=== PATIENT | male | born 1955 | race Caucasian/White ===

== ENCOUNTER → 2018-07-21 18:45 | Outpatient (CLI) | payer MEDICARE, SELFPAY | PROVIDERS: PCP Family Medicine; Visit Provider Family Medicine | DX: G47.33 Obstructive sleep apnea (adult) (pediatric) (principal) | CPT/HCPCS: 95806 ==

== ENCOUNTER → 2018-10-30 14:57 | Outpatient (CLI) | payer MEDICARE, SELFPAY | PROVIDERS: Visit Provider Specialist | DX: G47.33 Obstructive sleep apnea (adult) (pediatric) (principal) | CPT/HCPCS: 94762 ==

== ENCOUNTER 2025-04-23 10:27 | Outpatient (CLI) | payer MEDICARE, SELFPAY ==
--- OUTSIDE RECORDS SUMMARY | 2025-04-23 10:30 | XMS_ITS | Clinical Summary ---
Author Organization Healthcare Address [address] [place] [address] Care Team Providers Care Fermenter Helper Name Role Phone Favio Clay MD Primary Care Provider [phone] Family History Medical History Relation Name Comments Lymphoma Father Diabetes Mother Relation Name Status Comments Father Mother Social History Tobacco Use Types Packs/Day Years Used Date Smoking Tobacco: Former Alcohol Use Standard Drinks/Week Comments No 0 (1 standard drink = 0.6 oz pur e alcohol) Sex and Gender Information Value Date Recorded Sex Assigned at Not on file Legal Sex Male 6:00 PM EDT Gender Identity Not on file Sexual Orientation Not on file Last Filed Vital Signs Vital Sign Reading Time Taken Comments Blood Pressure - - Pulse - - Temperature - - Respiratory Rate - - Oxygen Saturation - - Inhaled Oxygen Concentration - - Weight 134 kg (294 lb 6.1 oz) 02/16/2016 12:31 P M EDT Height 190.5 cm (6' 3 ) 02/16/2016 12:31 PM EDT Body Mass Index 36.79 02/16/2016 12:31 PM EDT Plan of Treatment Not on file Care Teams Fermenter Helper Relationship Specialty Start Date End Date Favio Clay MD [facility] [place] [address] PCP - General 01/16/21
--- OUTSIDE RECORDS SUMMARY | 2025-04-23 10:30 | XMS_ITS | Clinical Summary ---
[facility] Organization [facility] Address [address] [place] [address] Care Team Providers Care Rotary Veneer Machine Operator Name Role Phone Favio Clay MD Primary Care Provider [phone] Allergies No known active allergies Medications Semaglutide, 1 MG/DOSE, (OZEMPIC) 2 MG/1.5ML solution pen-injector Inject 1 mg under the skin into the appropriate area as directed 1 (One) Time Per Week. Active rosuvastatin (CRESTOR) 20 MG tablet Take 1 tablet by mouth Daily. Active metoprolol tartrate (LOPRESSOR) 100 MG tablet Take 1 tablet by mouth 2 (Two) Times a Day. Active lisinopril (PRINIVIL,ZESTR IL) 20 MG tablet Take 1 tablet by mouth Daily. Active gabapentin (NEURONTIN) 300 MG capsule Take 1 capsule by mouth 2 (Two) Times a Day. Active metFORMIN (GLUCOPHAGE) 1000 MG tablet Take 1 tablet by mouth 2 (Two) Times a Day With Meals. Active traMADol (ULTRAM) 50 MG tablet Take 1 tablet by mouth Every 8 (Eight) Hours As Needed for Moderate Pain. Active baclofen (LIORESAL) 10 MG tablet Take 1 tablet by mouth Every 8 (Eight) Hours As Needed for Muscle Spasms. 10 tablet 4 Active Social History Tobacco Use Types Packs/Day Years Used Date Smoking Tobacco: Every Day Cigarettes Tobacco Cessation:Ready to Q uit: Not Asked; Counseling Given: Not Answered Alcohol Use Standard Drinks/Week Comments Not Currently 0 (1 standard drink = 0.6 oz pur e alcohol) Abuse Screen Answer Date Recorded Feels Unsafe at Home or Work/School no 03/26/2024 Feels Threatened by Someone no 03/06 Does Anyone Try to Keep You From Having Contact with Others or Doing Things Outside Your Home? no 03/26/2024 Physical Signs of Abuse Present no 03/26/2024 Housing Stability Answer Date Recorded Current Living Arrangements Not on file 05/2023 Potentially Unsafe Housing Conditions Not on deneen e 06/13/2023 Family and Community Support Answer Jovani e Recorded Help with Day-to-Day Activities Not on file 06/13/2023 Lonely or Isolated Not on file 06/13/2023 Employment Answer Date Recorded Do you want help finding or keeping work or a matt b? Not on file 06/13/2023 Disabilities Answer Date Recorded Concentrating, Remembering, or Making Decisions Difficulty Not on file 06/13/2023 Doing Errands Independently Difficulty Not on fi le 06/13/2023 Education Answer Date Recorded Help with school or training? Not on file Preferred Language Not on file 06/13/2023 Sex and Gender Information Value Date Recorded Sex Assigned at Not on file Legal Sex Male 1:31 PM EDT Gender Identity Not on file Sexual Orientation Not on file Last Filed Vital Signs Vital Sign Reading Time Taken Comments Blood Pressure 125/77 03/26/2024 12:38 PM EDT Pulse 69 03/26/2024 1:30 PM EDT Temperature 36.7 C (98 F) 03/26/2024 11:33 AM EDT Respiratory Rate 20 03/26/2024 11:33 AM EDT Oxygen Saturation 92% 03/26/2024 1:30 PM EDT Inhaled Oxygen Concentration - - Weight 116 kg (256 lb 3.2 oz) 03/26/2024 11:33 A M EDT Height 182.9 cm (6') 03/26/2024 11:33 AM EDT Body Mass Index 34.75 03/26/2024 11:33 AM EDT Plan of Treatment Health Maintenance Due Date Last Done Comments TEJINDER 1998 COLON CANCER SCREENING [address] COLONOGRAPHY 1998 FECAL OCCULT BLOOD TEST 1998 FIT Testing (1 year) 1998 Pneumococcal Vaccine 50+ (1 of 1 - PCV) 2003 ZOSTER VACCINE (1 of 2) 2003 AAA SCREEN ONCE 2018 ANNUAL PHYSICAL 05/15/2018 HEPATITIS C SCREENING 05/15/2018 COVID-19 Vaccine (4 - 2023-2 5 season) 2024 07/04/2021, 12/05/2020, 11/06/2020 INFLUENZA VACCINE 06/05/2025 08/12/2023, , 06/19/2021, Additional history exists COLONOSCOPY 05/29/2028 05/29/2018, 12/04, 12/22/2009, Additional history exists COLORECTAL CANCER SCREENING 05/29/2028 TDAP/TD VACCINES (2 - Td or Tdap) 02/06/2030 020 Procedures Procedure Name Priority Date/Time Associated Diagnosis Comments SCANNED - COLONOSCOPY 05/29/2018 from Last 3 Months or Most Recently Relevant to Health Maintenance Results * SCANNED - COLONOSCOPY (05/29/2018) Favio Clay MD CHART REVIEW TABS Final Re sult from Last 3 Months or Most Recently Relevant to Health Maintenance Insurance Care Teams Rotary Veneer Machine Operator Relationship Specialty Start Date End Date Favio Clay MD [address] [place] [address] PCP - General Family Medicine 04/28/18
--- OUTSIDE RECORDS SUMMARY | 2025-04-23 10:30 | XMS_ITS | Clinical Summary ---
Author Organization [facility] ([place], [place], [place], [place]) Address [address] [place] [address] Care Team Providers Care Database Technician Name Role Phone Favio Clay MD Primary Care Provider [phone] Allergies No known active allergies Medications gabapentin (NEURONTIN) 300 MG capsule Take 1 capsule (300 mg total) by mouth 2 (two) times daily. Active lisinopriL (ZESTRIL) 20 MG tablet Take 1 tablet (20 mg total) by mouth nightly. Active metFORMIN (GLUCOPHAGE) 1000 MG tablet Take 1 tablet (1,000 mg total) by mouth 2 (two) times daily. Active metoprolol tartrate (LOPRESSOR) 100 MG tablet Take 1 tablet (100 mg total) by mouth nightly. Active rosuvastatin (CRESTOR) 20 MG tablet Take 1 tablet (20 mg total) by mouth nightly. Active semaglutide 1 mg/dose (4 mg/3 mL) pnij Inject 1 mg under the skin once a week mondays. Active meloxicam (MOBIC) 15 MG tablet Take 0.5 tablets (7.5 mg total) by mouth 2 (two) times daily. 04/05/2025 Active Resolved Problems Problem Noted Date Diagnosed Date Resolved Date Lumbar stenosis with neurogenic claudication 02/03/2025 Encounters Date Type Department Care Team Description 02/01/2025 1:34 PM EDT - 02/01/2025 4:58 PM EDT Surgery [facility] Operating Room [address] [place] [address] Korey Osorio MD (L4-S1 PLIF USING GE 02/01/2025 1:12 PM EDT Anesthesia Event [facility] Operating Room [address] [place] [id number] Tyler Chatman MD Littles, Joel T, MD 02/01/2025 10:50 AM EDT - 02/03/2025 2:43 PM EDT Hospital Encounter [facility] Orthopedic & Neurosurgery Unit [address] [place] [address] Korey Osorio MD Discharge Disposition: Home or Self Care 02/01/2025 Travel 01/21/2025 1:57 PM EDT - 01/21/2025 11:59 PM EDT Hospital Encounter [facility] Preadmission Testing [address] [place] [address] Korey Osorio MD Preop testing (Primary Dx) Discharge Disposition: Home or Self Care 01/21/2025 Travel from Last 3 Months Social History Tobacco Use Types Packs/Day Years Used Date Smoking Tobacco: Former Cigarettes S tarted: 2023 Smokeless Tobacco: Former Tobacco Cessation:Counseling Given: Not Answered Alcohol Use Standard Drinks/Week Comments Never 0 (1 standard drink = 0.6 oz pur e alcohol) [facility] - Mental Health Answer Date Recorde d Little interest or pleasure in doing things Not at all 01/21/2025 Feeling down, depressed, or hopeless Not at all 01/21/2025 Feeling of Stress Not on file 01/21/2025 Sex and Gender Information Value Date Recorded Sex Assigned at Not on file Legal Sex Male 5:20 PM CDT Gender Identity Not on file Sexual Orientation Not on file Last Filed Vital Signs Vital Sign Reading Time Taken Comments Blood Pressure 124/68 02/03/2025 11:26 AM EDT Pulse 76 02/03/2025 11:26 AM EDT Temperature 36.3 C (97.3 F) 02/03/2025 11:26 AM EDT Respiratory Rate 16 02/03/2025 11:26 AM EDT Oxygen Saturation 98% 02/03/2025 11:26 AM EDT Inhaled Oxygen Concentration 25% 02/03/2025 1 2:00 AM EDT Weight 127.1 kg (280 lb 4 oz) 02/01/2025 11:19 A M EDT Height 188 cm (6' 2 ) 01/21/2025 2:24 PM EDT Body Mass Index 35.98 01/21/2025 2:24 PM EDT Plan of Treatment Health Maintenance Due Date Last Done Comments CT Colonography 1953 Colonoscopy 1953 Colorectal Cancer Screening 1953 FOBT/FIT 1953 Fit-DNA (Cologuard) 1953 Sigmoidoscopy 1953 Hepatitis C Screening 1971 Pneumococcal 50+ years (1 of 1 - PCV) 2003 Shingles Vaccine (Zoster) (1 of 2) 2003 Abdominal Aortic Aneurysm (A AA) Screen 2018 COVID-19 VACCINE (2023-2 5 season) 2024 07/04/2021, 12/05/2020, 11/06/2020 Falls Risk Screening 09/05/2024 Medicare IPPE (Welcome to Medicare) [id number] 09/05/2024 Influenza Vaccine (#1) 2025 , 08/12/2023, 06/14/2022, Additional history exists Depression Screening (12+) 01/21/2026 01/21/2025 Tobacco Cessation Counseling and Screening (12+) 02/01/2026 02/01/2025 Respiratory Syncytial Virus (RSV) Adult or (1 - 1-dose 75+ series) 02/20/2028 DTAP/TDAP/TD VACCINES (3 - T d or Tdap) 07/07/2034 07/07/2024, 02/07/2020 Medical Devices Implanted Type Area Transportation Broker Device Identifier Shelf Expiration Date Model / Serial / Lot Bone Vivigen Formable Cell c Bl-1600-002 - [id number] Implanted:Qty: 1 on 02/01/2025 by Korey Osorio MD at [facility] IMPLANTS N/A: Spine Lumbar LIFENET:LIFENET TRANSPLANT SRV 01/10/2026 BL-1600-0 02 / [id number] / Scr Poly Fen 7x55mm [id number] - [id number] Implanted:Qty: 4 on 02/01/2025 by Korey Osorio MD at [facility] IMPLANTS N/A: Spine Lumbar J &J:DEPUY:DEPUY SPINE 5560-12-7 055F / 5560-12-7 055F / Scr Poly Fen 7x50mm [id number] - [id number] Implanted:Qty: 2 on 02/01/2025 by Korey Osorio MD at [facility] IMPLANTS N/A: Spine Lumbar J &J:DEPUY:DEPUY SPINE 5560-12-7 050F / 5560-12-7 050F / St Scr T27 5.5 And 6.0 [id number] - [id number] Implanted:Qty: 6 on 02/01/2025 by Korey Osorio MD at [facility] IMPLANTS N/A: Spine Lumbar J &J:DEPUY:DEPUY SPINE 5560-01-0 000 / 5560-01-0 000 / Chad Prelordosed 5.5x65mm [id number] - [id number] Implanted:Qty: 2 on 02/01/2025 by Korey Osorio MD at [facility] IMPLANTS N/A: Spine Lumbar J &J:DEPUY:DEPUY SPINE 5560-55-3 065T / 5560-55-3 065T / Procedures Procedure Name Priority Date/Time Associated Diagnosis Comments NOVA GLUCOSE POC Routine 02/01/2025 3:54 PM EDT FL C-ARM < 1 HOUR Routine 02/01/2025 3:3 0 PM EDT ANESTHESIA INTUBATION Routine 02/01/2025 1:20 PM EDT WI ARTHRODESIS COMBINED TQ 1NTRSPC LUMBAR 02/01/2025 1:12 PM EDT Lumbar spondylosis Case Notes IN 1030 , 2.5h(R), PASS, USING AIRO NOVA GLUCOSE POC Routine 02/01/2025 11:4 2 AM EDT ABO/RH CONFIRMATION/RETYPE ([place] BKR) Routine 02/01/2025 11:38 AM EDT TYPE AND SCREEN ([place] BKR) STAT 02/01/2025 11:32 AM EDT EKG-SCANNED 02/01/2025 FS_MODEL_IP_ECG 12-LEAD Routine 01/21/2025 2:43 PM EDT Preop testing URINALYSIS WITHOUT MICROSCOPIC Routine 01/21/2025 2:21 PM EDT Preop testing CBC W/ AUTO DIFF STAT 01/21/2025 2:21 PM EDT Preop testing BASIC METABOLIC PANEL STAT 01/21/2025 2:21 PM EDT Preop testing from Last 3 Months Results * Glucose, Nova Meter (02/01/2025 3:54 PM EDT) Only the most recent of2 resultswithin the time period is included. POC-GLUCOSE 104 70 - 110 mg/dL 02/01/2025 3:56 PM EDT [facility] Comment:In the event of poor peripheral blood flow, venous or arterial blood should be used due to the potential of erroneous results. Burner Technician [id number] 02/01/2025 3:56 PM EDT [facility] Blood WHOLE BLOOD / Unknown 02/01/2025 3:54 PM EDT 02/01/2025 3:55 PM EDT Narrative [facility] - 02/01/2025 3:56 PM EDT Burner Technician ID is - [id number] us Korey Osorio MD POINT OF CARE TEST ORDERABLES Fi nal Result [facility] [address] [phone] * FL C-ARM < 1 HOUR (02/01/2025 3:30 PM EDT) Anatomical Region Laterality Modality X-Ray 02/01/2025 4:37 PM EDT Impressions 02/01/2025 4:[address] for hardware placement as detailed above. Images reviewed, interpreted, and dictated by Dr. Van Walker. Transcribed by Regina Hodge PA-C. Narrative 02/01/2025 4:[address] LUMBAR SPINE 02/01/2025 1:15 PM HISTORY: Intraoperative lumbar spine fusion. PROCEDURE: Axial images were obtained in the operative suite through the lumbar spine by computed tomography. This study was performed with techniques to keep radiation doses as low as reasonably achievable, (ALARA). Individualized dose reduction techniques using automated exposure control or adjustment of mA and/or kV according to the patient size were employed. FINDINGS: Posterior hardware is noted. Wide posterior exposure is noted. There is diffuse degenerative disc disease. RADIATION DOSE: Reference air kerma 306 mGy. Procedure Note Rachna Walker MD - 02/01/2025 CT LUMBAR SPINE 02/01/2025 1:15 PM HISTORY: Intraoperative lumbar spine fusion. PROCEDURE: Axial images were obtained in the operative suite through the lumbar spine by computed tomography. This study was performed with techniques to keep radiation doses as low as reasonably achievable, (ALARA). Individualized dose reduction techniques using automated exposure control or adjustment of mA and/or kV according to the patient size were employed. FINDINGS: Posterior hardware is noted. Wide posterior exposure is noted. There is diffuse degenerative disc disease. RADIATION DOSE: Reference air kerma 306 mGy. IMPRESSION: Intraoperative CT for hardware placement as detailed above. Images reviewed, interpreted, and dictated by Dr. Van Walker. Transcribed by Regina Hodge PA-C. Korey Osorio MD IMG FLUOROSCOPY ORDERABLES Final Result * AN SINGLE LUMEN INTUBATION (02/01/2025 1:20 PM EDT) Narrative Natacha Nam CRNA - 02/01/2025 1:20 PM EDT Natacha Nam CRNA 02/01/2025 1:25 PM Intubation Authorized by: Tyler Chatman MD Performed by: Natacha Nam CRNA Date/Time: 02/01/2025 1:20 PM Urgency: elective Indications and Patient Condition Indications for airway management: anesthesia and airway protection Spontaneous Ventilation: absent Sedation level: general anesthesia Preoxygenated: yes Patient position: sniffing no Mask difficulty assessment: 2 - vent by mask + OA or adjuvant +/- NMBA no Final Airway Details Final airway type: endotracheal airway Endotracheal tube type: ETT Cuffed: yes Successful intubation technique: direct laryngoscopy Facilitating devices/methods: intubating stylet Endotracheal tube insertion site: oral Blade: Edi Blade size: #4 ETT size (mm): 8.0 Cormack-Lehane Classification: grade I - full view of glottis Placement verified by: chest auscultation and capnometry Measured from: lips ETT to lips (cm): 22 Number of attempts at approach: 1 Number of other approaches attempted: 0 Additional Comments Atraumatic intubation, oral structures same as preop us Tyler Chatman MD ANESTHESIA ORDERABLES Final Resu lt * ABO/RH Confirmation/Retype (02/01/2025 11:38 AM EDT) RETYPE O Positive 02/01/2025 11:24 AM EDT [facility] ([place]) Blood Venipuncture / Unknown 02/01/2025 11:38 AM EDT 02/01/2025 11:49 AM EDT us Tyler Chatman MD [facility] TEST ORDERABLES F inal Result [facility] ([place]) [address] [facility] [place] [address], [facility] [phone] * Type and Screen (02/01/2025 11:32 AM EDT) ABO/Rh O Positive 02/01/2025 11:20 AM EDT [facility] ([place]) Antibody Screen Negative 02/01/2025 11:20 AM EDT [facility] ([place]) HISTCHK HIST CHECK PERFORMED 02/01/2025 11:20 AM EDT [facility] ([place]) Blood Venipuncture / Unknown 02/01/2025 11:32 AM EDT 02/01/2025 11:49 AM EDT us Tyler Chatman MD [facility] TEST ORDERABLES F inal Result Performing Organization Address [facility]/ZIP Co de Phone Number [facility] ([place]) [address] [facility] [place] [address], [facility] [phone] * EKG-SCANNED (02/01/2025) Narrative 02/01/2025 Ordered by an unspecified provider. us Default Scanning Provider SCAN ORDERS Final Result * ECG 12 lead (01/21/2025 2:43 PM EDT) VENTRICULAR RATE EKG/MIN 80 BPM GE MUSE ATRIAL RATE (MCT) 80 BPM GE MUSE WI Interval 146 ms GE MUSE QRS-INTERVAL (MSEC) 72 ms GE MUSE QT Interval 382 ms GE MUSE QTC Interval 440 ms GE MUSE P [place] 50 degrees GE MUSE R AXIS (MCT) 24 degrees GE MUSE T Wave [place] 63 degrees GE MUSE [place] Diagnosis Normal sinus rhythm Normal ECG No previous ECGs available Confirmed by Gera Wilson ([id number]) on 01/22/2025 10:57:06 AM GE MUSE 01/21/2025 2:43 PM EDT 01/22/2025 10:57 AM EDT us Toribio Schmitz MD ECG ORDERABLES Final Result Performing Organization Address [facility]/ZIP Co de Phone Number GE MUSE * (ABNORMAL) CBC with automated diff (01/21/2025 2:21 PM EDT) WBC 8.0 4.2 - 9.1 K/ L 01/21/2025 2:50 PM EDT [facility] RBC 3.89(L) 4.63 - 6.08 M/ L 01/21/2025 2:50 PM EDT [facility] Hemoglobin 12.3(L) 13.7 - 17.5 GM/DL 01/21/2025 2:50 PM EDT [facility] Hematocrit 36.9(L) 40.1 - 51.0 % 01/21/2025 2:50 PM EDT [facility] MCV 95(H) 79 - 92 fL 01/21/2025 2:50 PM EDT [facility] MCH 31.6 25.7 - 32.2 pg 01/21/2025 2:50 PM EDT [facility] MCHC 33.3 32.3 - 36.5 GM/DL 01/21/2025 2:50 PM EDT [facility] RDW 13.3 11.6 - 14.4 % 01/21/2025 2:50 PM EDT [facility] Platelets 215 140 - 375 K/CU MM 01/21/2025 2:50 PM EDT [facility] MPV 10.4 9.4 - 12.4 fL 01/21/2025 2:50 PM EDT [facility] % Neutros 60 34 - 68 % 01/21/2025 2:50 PM EDT [facility] % Lymphs 31 22 - 53 % 01/21/2025 2:50 PM EDT [facility] % Monos 7 5 - 12 % 01/21/2025 2:50 PM EDT [facility] % Eos 3 1 - 7 % 01/21/2025 2:50 PM EDT [facility] % Baso 0 0 - 1 % 01/21/2025 2:50 PM EDT [facility] NRBC Absolute <0.01 0 - 0.012 K/ul 01/21/2025 2:50 PM EDT [facility] # Neutros 4.74 1.78 - 5.38 K/ L 01/21/2025 2:50 PM EDT [facility] # Lymphs 2.43 1.32 - 3.57 K/ L 01/21/2025 2:50 PM EDT [facility] # Monos 0.54 0.30 - 0.82 K/ L 01/21/2025 2:50 PM EDT [facility] # Eos 0.20 0.04 - 0.54 K/ L 01/21/2025 2:50 PM EDT [facility] # Baso 0.03 0.01 - 0.08 K/ L 01/21/2025 2:50 PM EDT [facility] Immature Granulocytes-Re lative 0.30 0.01 - 0.43 % 01/21/2025 2:50 PM EDT [facility] # IG <0.03 0.00 - 0.03 K/uL 01/21/2025 2:50 PM EDT [facility] Blood Venipuncture / Unknown 01/21/2025 2:21 PM EDT 01/21/2025 2:48 PM EDT Narrative [facility] - 01/21/2025 2:50 PM EDT When CBC w/ Auto Diff is ordered the lab will add a Manual Differential as a quality check at no additional charge if: Lymphocytes greater than seventy five percent with normal or increased WBC Monocytes greater than Fifteen percent Basophil greater than four percent Bands >10% or several immature myeloids are seen on scan Blast? Flag noted Atypical Lymph flag noted us Korey Osorio MD LAB BLOOD ORDERABLES Final Resul t [facility] [address] [phone] * (ABNORMAL) Urinalysis without Microscopic (01/21/2025 2:21 PM EDT) Color, UA Yellow 01/21/2025 2:43 PM EDT [facility] Clarity, UA Clear Clear 01/21/2025 2:43 PM EDT [facility] Specific Michie, UA 1.029 1.005 - 1.030 01/21/2025 2:43 PM EDT [facility] pH, UA 5.5(L) 6.0 - 8.0 01/21/2025 2:43 PM EDT [facility] Leukocytes, UA 25 Amada/uL(A) Negative 01/21/2025 2:43 PM EDT [facility] Nitrite, UA Negative Negative 01/21/2025 2:43 PM EDT [facility] Protein, UA Trace(A) Negative 01/21/2025 2:43 PM EDT [facility] Glucose, UA Normal Normal 01/21/2025 2:43 PM EDT [facility] Ketones, UA Trace(A) Negative 01/21/2025 2:43 PM EDT [facility] Urobilinogen, UA Normal Normal 01/21/2025 2:43 PM EDT [facility] Bilirubin, UA Negative Negative 01/21/2025 2:43 PM EDT [facility] Blood, UA Negative Negative 01/21/2025 2:43 PM EDT [facility] Specimen Source Urine, Clean Catch 01/21/2025 2:43 PM EDT [facility] Urine URINE SPECIMEN COLLECTION, CLEAN CATCH / Unknown 01/21/2025 2:21 PM EDT 01/21/2025 2:35 PM EDT us Korey Osorio MD URINE ORDERABLES Final Result Performing Organization Address City/State/[facility] Co de Phone Number [facility] [address] [phone] * (ABNORMAL) Basic Metabolic Panel (01/21/2025 2:21 PM EDT) Sodium 140 136 - 145 meq/L 01/21/2025 2:58 PM EDT [facility] Potassium 4.8 3.4 - 5.1 meq/L 01/21/2025 2:58 PM EDT [facility] CO2 26 22 - 29 meq/L 01/21/2025 2:58 PM EDT [facility] Chloride 105 98 - 112 meq/L 01/21/2025 2:58 PM EDT [facility] Glucose 124(H) 82 - 115 mg/dL 01/21/2025 2:58 PM EDT [facility] BUN 14.2 8.4 - 25.7 mg/dL 01/21/2025 2:58 PM EDT [facility] Creatinine 0.95 0.72 - 1.25 mg/dL 01/21/2025 2:58 PM EDT [facility] BUN/Creatinine 15 8 - 20 01/21/2025 2:58 PM EDT [facility] Calcium 9.6 8.4 - 10.2 mg/dL 01/21/2025 2:58 PM EDT [facility] Anion Gap 14(H) 4 - 12 01/21/2025 2:58 PM EDT [facility] eGFR (mL/min/1.73m2) 86 >=60 mL/min/1.7 3m2 01/21/2025 2:58 PM EDT [facility] Osmolality Calc 281.4 mOsm/kg 2:58 PM EDT [facility] Blood Venipuncture / Unknown 01/21/2025 2:21 PM EDT 01/21/2025 2:48 PM EDT us Korey Osorio MD LAB BLOOD ORDERABLES Final Resul t [facility] [address] [phone] from Last 3 Months Insurance [facility] MEDICARE HMO Advance Directives For more information, please contact: [phone] Documents on File Type Date Recorded Patient Customer Development Representative Expl anation Advance Directives and Livin g Will 01/21/2025 2:04 PM * Full Code (Latest Code Status on File) Date Activated Date Inactivated Comments 02/01/2025 5:51 PM 02/03/2025 3:43 PM Care Teams Database Technician Relationship Specialty Start Date End Date Favio Clay MD [address] [place] [address] [place] [id number] PCP - General Family Medicine 01/21/25
--- OUTSIDE RECORDS SUMMARY | 2025-04-23 10:30 | XMS_ITS | Referral Summary ---
Author Organization [employer] ([place], [place], [place], [place]) Address [address] [place] [address] Care Team Providers Care Forging Press Operator Name Role Phone Favio Clay MD Primary Care Provider [phone] Encounters Date Type Department Care Team Description 02/01/2025 10:50 AM EDT - 02/03/2025 2:43 PM EDT Hospital Encounter [facility] Orthopedic [facility] Neurosurgery Unit [address] [phone] Korey Osorio MD Discharge Disposition: Home or Self Care 02/01/2025 Travel 02/01/2025 1:34 PM EDT - 02/01/2025 4:58 PM EDT Surgery [facility] Operating Room [address] [phone] Korey Osorio MD ([id number] PLIF USING GE 02/01/2025 1:12 PM EDT Anesthesia Event [facility] Operating Room [address] [phone] Tyler Chatman MD Littles, Joel T, MD 01/21/2025 Travel 01/21/2025 1:57 PM EDT - 01/21/2025 11:59 PM EDT Hospital Encounter [facility] Preadmission Testing [address] [place] [address] Korey Osorio MD Preop testing (Primary Dx) Discharge Disposition: Home or Self Care from Last 3 Months Allergies No known active allergies Medications gabapentin [...] Date Lumbar stenosis with neurogenic claudication 02/03/2025 Social History Tobacco Use Types Packs/Day Years Used Date Smoking Tobacco: Former Cigarettes S tarted: 2023 Smokeless Tobacco: Former Tobacco Cessation:Counseling Given: Not Answered Alcohol Use Standard Drinks/Week Comments Never 0 (1 standard drink = 0.6 oz pur e alcohol) [facility] - Mental Health Answer Date Recorde [...] 01/21/2025 2:24 PM EDT Plan of Treatment Not on file Medical Devices Implanted Type Area Laboratory Development Technician Device Identifier Shelf Expiration Date Model / Serial / Lot Bone Vivigen Formable Cell 5cc Bl-1600-002 - [id number] Implanted:Qty: 1 on 02/01/2025 by Korey Osorio MD at [facility] IMPLANTS N/A: Spine Lumbar LIFENET:LIFENET TRANSPLANT SRV 01/10/2026 BL-1600-0 02 / [id number] / Scr Poly Fen 7x55mm [id number] - [id number] Implanted:Qty: 4 on 02/01/2025 by Korey Osorio MD at [facility] IMPLANTS N/A: Spine Lumbar J &J:DEPUY:DEPUY SPINE 5560-12-7 055F / 5560-12-7 055F / Scr Poly Fen 7x50mm [id number] - [id number] Implanted:Qty: 2 on 02/01/2025 by Korey Osorio MD at [facility] IMPLANTS N/A: Spine Lumbar J &J:DEPUY:DEPUY SPINE 5560-12-7 050F / 5560-12-7 050F / St Scr T27 5.5 And 6.0 [id number] - [id number] Implanted:Qty: 6 on 02/01/2025 by Korey Osorio MD at [facility] IMPLANTS N/A: Spine Lumbar J &J:DEPUY:DEPUY SPINE 5560-01-0 000 / 5560-01-0 000 / Chad Prelordosed 5.5x65mm [id number] - [id number] Implanted:Qty: 2 on 02/01/2025 by Korey Osorio MD at [facility] IMPLANTS N/A: Spine Lumbar J &J:DEPUY:DEPUY SPINE 5560-55-3 065T / 5560-55-3 065T / Procedures Procedure Name Priority Date/Time Associated Diagnosis Comments NOVA GLUCOSE POC Routine 02/01/2025 3:54 PM EDT [place] C-ARM < 1 HOUR Routine 02/01/2025 3:3 0 PM EDT ANESTHESIA INTUBATION Routine 02/01/2025 1:20 PM EDT [place] ARTHRODESIS COMBINED TQ 1NTRSPC LUMBAR 02/01/2025 1:12 [...] of2 resultswithin the time period is included. [facility] POC-GLUCOSE 104 70 - 110 mg/dL 02/01/2025 3:56 PM EDT [facility] Comment:In the event of poor peripheral blood flow, venous or arterial blood should be used due to the potential of erroneous results. Hospital Medical Biller [id number] 02/01/2025 3:56 PM EDT [facility] Blood WHOLE BLOOD / Unknown 02/01/2025 3:54 PM EDT 02/01/2025 3:55 PM EDT Narrative [facility] - 02/01/2025 3:56 PM EDT Hospital Medical Biller ID is - [id number] us Korey Osorio MD POINT OF CARE TEST ORDERABLES Fi nal Result [facility] [address] [phone] * [place] C-ARM < 1 HOUR (02/01/2025 [...] RETYPE O Positive 02/01/2025 11:24 AM EDT [facility] ([place]) Blood Venipuncture / Unknown 02/01/2025 11:38 AM EDT 02/01/2025 11:49 AM EDT Tyler Chatman MD [facility] TEST ORDERABLES F inal Result Performing Organization Address [facility] Co de Phone Number [facility] ([place]) [address] [place] [address] [place] [address], [facility] [phone] * Type and Screen (02/01/2025 11:32 AM EDT) ABO/Rh O Positive 02/01/2025 11:20 AM EDT [facility] ([place]) Antibody Screen Negative 02/01/2025 11:20 AM EDT [facility] ([place]) HISTCHK HIST CHECK PERFORMED 02/01/2025 11:20 AM EDT [facility] ([place]) Blood Venipuncture / Unknown 02/01/2025 11:32 AM EDT 02/01/2025 11:49 AM EDT Tyler Chatman MD [facility] BLOOD [facility] TEST ORDERABLES F inal Result Performing Organization Address [facility] de Phone Number [facility] ([place]) [address] [place] [address] [place] [address], [facility] [phone] * EKG-SCANNED (02/01/2025) Narrative 02/01/2025 Ordered by an unspecified provider. us Default Scanning Provider SCAN ORDERS Final Result * ECG 12 lead (01/21/2025 2:43 PM EDT) VENTRICULAR RATE EKG/MIN 80 BPM GE MUSE ATRIAL RATE (MCT) 80 BPM GE MUSE [place] Interval 146 ms GE MUSE QRS-INTERVAL (MSEC) 72 ms GE MUSE QT Interval 382 ms GE MUSE QTC Interval 440 ms GE MUSE P [place] 50 degrees GE MUSE R AXIS (MCT) 24 degrees GE MUSE T Wave [place] 63 degrees GE MUSE [place] Diagnosis Normal sinus rhythm Normal ECG No previous ECGs available Confirmed by Gera Wilson ([id number]) on 01/22/2025 10:57:06 AM GE MUSE 01/21/2025 2:43 PM EDT 01/22/2025 10:57 AM EDT us Toribio Schmitz MD ECG ORDERABLES Final Result [facility] * (ABNORMAL) CBC with automated diff (01/21/2025 2:21 PM EDT) WBC 8.0 4.2 - 9.1 K/ L 01/21/2025 2:50 PM EDT [facility] RBC 3.89(L) 4.63 - 6.08 M/ L 01/21/2025 2:50 PM EDT [facility] Hemoglobin 12.3(L) 13.7 - 17.5 GM/DL 01/21/2025 2:50 PM EDT [facility] Hematocrit 36.9(L) 40.1 - 51.0 % 01/21/2025 2:50 PM EDT [facility] MCV 95(H) 79 - 92 fL 01/21/2025 2:50 PM EDT [facility] MCH 31.6 25.7 - 32.2 pg 01/21/2025 2:50 PM EDT [facility] MCHC 33.3 32.3 - 36.5 GM/DL 01/21/2025 2:50 PM EDT [facility] RDW 13.3 11.6 - 14.4 % 01/21/2025 2:50 PM EDT [facility] Platelets 215 140 - 375 K/CU MM 01/21/2025 2:50 PM EDT [facility] MPV 10.4 9.4 - 12.4 fL 01/21/2025 2:50 PM EDT [facility] % Neutros 60 34 - 68 % 01/21/2025 2:50 PM EDT [facility] % Lymphs 31 22 - 53 % 01/21/2025 2:50 PM EDT [facility] % Monos 7 5 - 12 % 01/21/2025 2:50 PM EDT [facility] % Eos 3 1 - 7 % 01/21/2025 2:50 PM EDT [facility] % Baso 0 0 - 1 % 01/21/2025 2:50 PM EDT [facility] NRBC Absolute <0.01 0 - 0.012 K/ul 01/21/2025 2:50 PM EDT [facility] # Neutros 4.74 1.78 - 5.38 K/ L 01/21/2025 2:50 PM EDT [facility] # Lymphs 2.43 1.32 - 3.57 K/ L 01/21/2025 2:50 PM EDT [facility] # Monos 0.54 0.30 - 0.82 K/ L 01/21/2025 2:50 PM EDT [facility] # Eos 0.20 0.04 - 0.54 K/ L 01/21/2025 2:50 PM EDT [facility] # Baso 0.03 0.01 - 0.08 K/ L 01/21/2025 2:50 PM EDT [facility] Immature Granulocytes-Re lative 0.30 0.01 - 0.43 % 01/21/2025 2:50 PM EDT [facility] # IG <0.03 0.00 - 0.03 K/uL 01/21/2025 2:50 PM EDT [facility] Blood Venipuncture / Unknown 01/21/2025 2:21 PM EDT 01/21/2025 2:48 PM EDT Narrative [facility] - 01/21/2025 2:50 PM EDT When [...] MD LAB BLOOD ORDERABLES Final Resul t [facility] [address] [phone] * (ABNORMAL) Urinalysis without Microscopic (01/21/2025 2:21 PM EDT) Color, UA Yellow 01/21/2025 2:43 PM EDT [facility] Clarity, UA Clear Clear 01/21/2025 2:43 PM EDT [facility] Specific Wiggins, UA 1.029 1.005 - 1.030 01/21/2025 2:43 PM EDT [facility] pH, UA 5.5(L) 6.0 - 8.0 01/21/2025 2:43 PM EDT [facility] Leukocytes, UA 25 Amada/uL(A) Negative 01/21/2025 2:43 PM EDT [facility] Nitrite, UA Negative Negative 01/21/2025 2:43 PM EDT [facility] Protein, UA Trace(A) Negative 01/21/2025 2:43 PM EDT [facility] Glucose, UA Normal Normal 01/21/2025 2:43 PM EDT [facility] Ketones, UA Trace(A) Negative 01/21/2025 2:43 PM EDT [facility] Urobilinogen, UA Normal Normal 01/21/2025 2:43 PM EDT [facility] Bilirubin, UA Negative Negative 01/21/2025 2:43 PM EDT [facility] Blood, UA Negative Negative 01/21/2025 2:43 PM EDT [facility] Specimen Source Urine, Clean Catch 01/21/2025 2:43 PM EDT [facility] Urine URINE SPECIMEN COLLECTION, CLEAN CATCH / Unknown 01/21/2025 2:21 PM EDT 01/21/2025 2:35 PM EDT us Korey Osorio MD URINE ORDERABLES Final Result [facility] [address] [phone] * (ABNORMAL) Basic Metabolic Panel (01/21/2025 2:21 PM EDT) Sodium 140 136 - 145 meq/L 01/21/2025 2:58 PM EDT [facility] Potassium 4.8 3.4 - 5.1 meq/L 01/21/2025 2:58 PM EDT [facility] CO2 26 22 - 29 meq/L 01/21/2025 2:58 PM EDT [facility] Chloride 105 98 - 112 meq/L 01/21/2025 2:58 PM EDT [facility] Glucose 124(H) 82 - 115 mg/dL 01/21/2025 2:58 PM EDT [facility] BUN 14.2 8.4 - 25.7 mg/dL 01/21/2025 2:58 PM EDT [facility] Creatinine 0.95 0.72 - 1.25 mg/dL 01/21/2025 2:58 PM EDT [facility] BUN/Creatinine 15 8 - 20 01/21/2025 2:58 PM EDT [facility] Calcium 9.6 8.4 - 10.2 mg/dL 01/21/2025 2:58 PM EDT [facility] Anion Gap 14(H) 4 - 12 01/21/2025 2:58 PM EDT [facility] eGFR (mL/min/1.73m2) 86 >=60 mL/min/1.7 3m2 01/21/2025 2:58 PM EDT [facility] Osmolality Calc 281.4 mOsm/kg 2:58 PM EDT [facility] Blood Venipuncture / Unknown 01/21/2025 2:21 PM EDT 01/21/2025 2:48 PM EDT us Korey Osorio MD LAB BLOOD ORDERABLES Final Resul t [facility] [address] [phone], [facility] [phone] from Last 3 Months Insurance Advance Directives For more information, please contact: [phone] Documents on File Type Date Recorded 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
[2025-04-23 10:51] VITALS: BP 152/86; PULSE 79; RESP 14; TEMP 36.2; O2SAT 97
[2025-04-23] MEDS: DENOSUMAB 60 MG/ML SYRINGE SUBCUT (10:51)
[2025-04-23 11:10] VITALS: BP 148/69; PULSE 76; RESP 14; TEMP 36.2; O2SAT 97
== END 2025-04-23 11:10 | disposition home or self-care (01) ==
LOC: INF 10:27
PROVIDERS: PCP Family Medicine; Visit Provider Family Medicine
DX: M81.0 Age-related osteoporosis without current pathological fracture (principal)
CPT/HCPCS: 96372; J0897